=== PATIENT | female | born 1960 | race Hispanic/Latino ===

== ENCOUNTER 2017-03-27 05:38 | Emergency (ER) | payer OTHER ==
[~2017-03-27] VITALS: Ht 162.6 cm; Wt 103.9 kg
[~2017-03-27 05:38] MED LIST: FLAGYL500 MG PO; VITAMIN D1000 UNI1 PO; Z.0.CEFTIN500 MG PO
--- NOTE | 2017-03-27 06:29 | Diagnostic Imaging Report ---
CHEST 2 VIEWS, Technique: CHEST 2 VIEWS Comparison: 12/22/2016 Clinical history: Fever, cough DISCUSSION: Stable cardiomediastinal silhouette. No consolidation or edema. No pleural effusion or pneumothorax. IMPRESSION: No acute abnormality. Signed by: Dr Nancy Bermudez MD on 03/27/2017 6:25 AM
[2017-03-27 06:47] VITALS: BP 142/65
== END 2017-03-27 06:47 | disposition home or self-care (01) ==
LOC: ER 05:38
DX: R50.9 Fever, unspecified (principal); J00 Acute nasopharyngitis [common cold]; F17.210 Nicotine dependence, cigarettes, uncomplicated
CPT/HCPCS: 71020; 87400; 99283

== ENCOUNTER 2018-05-08 18:24 | Emergency (ER) | payer OTHER ==
[~2018-05-08] VITALS: Ht 162.6 cm; Wt 103.9 kg
[~2018-05-08 18:24] MED LIST changes: +CEFDINIR300 MG PO; +PYRIDIUM100 MG PO
[2018-05-08] MEDS ORDERED: CIPRO500 MG PO (20:20)
[2018-05-08] MEDS ORDERED: PYRIDIUM100 MG PO (20:21)
[2018-05-08 20:47] LABS: CLARITY,URINE SL CLOUDY (CLEAR); COLOR,URINE STRAW (YELLOW); LEUKOCYTE ESTERASE ,URINE TRACE (NEGATIVE); NITRITE,URINE NEGATIVE (NEGATIVE)
[2018-05-08 20:48] LABS: BILIRUBIN,URINE NEGATIVE (NEGATIVE); KETONES,URINE NEGATIVE (NEGATIVE); PROTEIN,URINE DIPSTICK NEGATIVE (NEGATIVE); URINE UROBILINOGEN 0.2 mg/dL (0.2 - 1)
[2018-05-08 20:56] LABS: BACTERIA,URINE MANY /HPF; EPITHELIAL CELLS,URINE FEW /LPF
[2018-05-08 21:42] VITALS: BP 168/94
== END 2018-05-08 21:21 | disposition home or self-care (01) ==
LOC: ER 18:24
DX: R30.0 Dysuria (principal); N30.91 Cystitis, unspecified with hematuria
CPT/HCPCS: 81001; 87086; 87186; 99283

== ENCOUNTER 2019-05-28 18:16 | Emergency (ER) | payer OTHER ==
[~2019-05-28] VITALS: Ht 162.6 cm; Wt 103.9 kg
[~2019-05-28 18:16] MED LIST changes: +CIPRO500 MG PO
[2019-05-28 20:12] LABS: BILIRUBIN,URINE NEGATIVE (NEGATIVE); CLARITY,URINE CLEAR (CLEAR); COLOR,URINE YELLOW (YELLOW); KETONES,URINE NEGATIVE (NEGATIVE); LEUKOCYTE ESTERASE ,URINE TRACE (NEGATIVE); NITRITE,URINE NEGATIVE (NEGATIVE); PROTEIN,URINE DIPSTICK NEGATIVE (NEGATIVE); URINE UROBILINOGEN 0.2 mg/dL (0.2 - 1)
[2019-05-28 20:32] LABS: BACTERIA,URINE MANY /HPF; EPITHELIAL CELLS,URINE FEW /LPF
[2019-05-28] MEDS ORDERED: CEFTRIAXONE SOD 1 GM VIAL IM ONE (20:45)
[2019-05-28] MEDS ORDERED: PHENAZOPYRIDINE HCL 100 MG TAB PO ONE (20:45)
[2019-05-28] MEDS ORDERED: LIDOCAINE HCL 1% LOCAL INJ 20 ML VIAL ONE (21:32)
[2019-05-29 07:11] VITALS: BP 148/79
== END 2019-05-28 22:15 | disposition home or self-care (01) ==
LOC: ER 18:16
DX: R30.0 Dysuria (principal); N39.0 Urinary tract infection, site not specified
CPT/HCPCS: 81001; 99283; J0696; J2001

== ENCOUNTER → 2020-12-20 | Emergency (ER) | payer OTHER | END | disposition home or self-care (01) | LOC: ER 18:28 | DX: Z53.21 Procedure and treatment not carried out due to patient leaving prior to being seen by health care provider (principal) ==

== ENCOUNTER 2021-04-07 20:18 | Emergency (ER) | payer OTHER ==
[~2021-04-07] VITALS: Ht 162.6 cm; Wt 95.3 kg
[2021-04-07] MEDS ORDERED: IBUPROFEN 600 MG TAB PO STA (20:39)
[2021-04-07] MEDS ORDERED: IBUPROFEN 600 MG TAB ONE (20:52)
[2021-04-07] MEDS ORDERED: ZITHROMAX250 MG PO (20:59)
== END 2021-04-07 21:20 | disposition home or self-care (01) ==
LOC: FSED 20:34
DX: R50.9 Fever, unspecified (principal); U07.1 COVID-19; J20.9 Acute bronchitis, unspecified; R05.9 Cough, unspecified; I10 Essential (primary) hypertension; E11.9 Type 2 diabetes mellitus without complications
CPT/HCPCS: 87400; 99283; U0002